=== PATIENT | female | born 1950 | race Caucasian/White ===

== ENCOUNTER 2017-03-30 21:19 | Emergency (ER) | payer MEDICARE, OTHER ==
[~2017-03-30] VITALS: Ht 165.1 cm; Wt 124.0 kg
[~2017-03-30 21:19] MED LIST: AMLO10 PO; COZA100T PO; GABA300C3 PO; LORTA5; PREM0.45 PO; TAB-TAB PO; TIZA4 PO; TRAM50TA PO
[2017-03-30 21:20] VITALS: BP 169/102; PULSE 83; RESP 16; TEMP 98.3; O2SAT 98
--- NOTE | 2017-03-30 23:13 | PD ---
HPI Chief Complaint: Fall Time Seen by Provider: 23:10 Travel History International Travel<30 days: No Contact w/Intl Traveler<30days: No Traveled to known affect area: No History of Present Illness HPI WHILE AT HOME, HER SEAT WAS ON COASTERS AND WHEN SHE ATTEMPTED TO GET UP IT SLID FROM UNDER HER AND SHE LANDED MOST OF HER WEIGHT ON RIGHT HIP, NOW PAINFUL 8/10, UNABLE TO SIT ON RIGHT BUTTCHEEK....VERY HARD TIME AMBULATING PFSH Past Medical History Arthritis: Yes Blood Disorders: No Cancer: No Cardiovascular Problems: Yes Diabetes: No Endocrine: No Glaucoma: No Genitourinary: No Hepatitis: No Hiatal Hernia: No Hypertension: Yes Immune Disorder: No Musculoskeletal: Yes Neurologic: Yes Psychiatric: No Reproductive: No Respiratory: No Thyroid Disease: No Past Surgical History Body Medical Devices: 2 EYE LENS Eye Surgery: Yes (ANN CATARACT SX) Gynecologic Surgery: Yes (TUBAL LIG., ANN. OOPHORECTOMIES) Joint Replacement: Yes (ANN TOTAL KNEE) Pacemaker: No Social History Alcohol Use: No Tobacco Use: No Substance Use: No Allergies-Medications (Allergen,Severity, Reaction): Coded Allergies: Lortab (Unverified Allergy, Severe, RASH, 03/30/17) Reported Meds & Prescriptions Reported Meds & Active Scripts Active Flexeril (Cyclobenzaprine HCl) 10 Mg Tab 10 Mg PO TID Codeine-Acetaminophen 30-300 mg Tab 1 Tab PO Q4H PRN Reported Gabapentin 300 Mg Cap 300 Mg PO QID Doxycycline Hyclate 100 Mg Cap 100 Mg PO BID K-Tab (Potassium Chloride) 10 Meq Tab 10 Meq PO BID Metoprolol Tartrate 25 Mg Tab 25 Mg PO BID Hydrocodone-Acetaminophen 5-300 Mg Tab 1 Tab PO Q8HR PRN Furosemide 20 Mg Tab 20 Mg PO BID Clonidine (Clonidine HCl) 0.1 Mg Tab 0.1 Mg PO BID Amlodipine (Amlodipine Besylate) 5 Mg Tab 5 Mg PO DAILY Review of Systems Except as stated in HPI: all other systems reviewed are Neg Musculoskeletal: Positive: Limited ROM, Pain (RLE/RT HIP AREA) Physical Exam Narrative GENERAL: SKIN: Warm and dry. HEAD: Atraumatic. Normocephalic. EYES: Pupils equal and round. No scleral icterus. No injection or drainage. ENT: No nasal bleeding or discharge. Mucous membranes pink and moist. NECK: Trachea midline. No JVD. CARDIOVASCULAR: Regular rate and rhythm. RESPIRATORY: No accessory muscle use. Clear to auscultation. Breath sounds equal bilaterally. GASTROINTESTINAL: Abdomen soft, non-tender, nondistended. Hepatic and splenic margins not palpable. MUSCULOSKELETAL: Extremities without clubbing, cyanosis, or edema. No obvious deformities. BUT SEVERELY LIMITED ROM AT RIGHT HIP/PELVIS/FEMUR AREAS WITHOUT GROSS DEFORMITIES NEUROLOGICAL: Awake and alert. No obvious cranial nerve deficits. Motor grossly within normal limits. Five out of 5 muscle strength in the arms and legs. Normal speech. PSYCHIATRIC: Appropriate mood and affect; insight and judgment normal. Data Data Last Documented VS Vital Signs Date Time Temp Pulse Resp B/P Pulse Ox O2 Delivery O2 Flow Rate FiO2 03/31/17 01:25 94 20 128/78 98 03/30/17 23:25 Room Air 03/30/17 21:20 98.3 Orders Femur (Ap & Lat/2vws) (03/30/17 23:10) Hip, Uni(Ap&Lat) W Ap Pelvis (03/30/17 23:10) Iv Access Insert/Monitor (03/30/17 23:10) Lorazepam Inj (Ativan Inj) (03/30/17 23:15) Ketorolac Inj (Toradol Inj) (03/30/17 23:15) MDM Medical Decision Making Medical Screen Exam Complete: Yes Emergency Medical Condition: Yes Medical Record Reviewed: Yes Differential Diagnosis PELVIS VS HIP VS FEMUR FX/DISLOCATION Narrative Course PT EVALUATED AND NOT FOUND TO HAVE HAD ANY FX OR DISLOCATION, PT HAD GREAT RELIEF OF PAIN AND WAS ABLE TO AMBULATE ON HER OWN Diagnosis Primary Impression: HIP CONTUSION Scripts Cyclobenzaprine (Flexeril)10 Mg Tab10 Mg PO TID #21 TAB Prov:Filipe Charles MD 03/31/17 Codeine-Acetaminophen 30-300 mg Tab1 Tab PO Q4H PRN (PAIN) #20 TAB Prov:Filipe Charles MD 03/31/17 Disposition: 01 DISCHARGE HOME Condition: Stable Filipe Charles MD Mar 30, 2017 23:13
[2017-03-30] MEDS ORDERED: KETOROLAC TROMETHAMINE 30 MG/ML (IVP) VIAL IV PUSH ONE (23:15)
[2017-03-30] MEDS ORDERED: LORazepam 2 MG/ML VIAL IVP ONE (23:15)
[2017-03-30] MEDS ORDERED: K-TA10TA PO (23:24)
[2017-03-30] MEDS ORDERED: FURO20TA PO (23:24)
[2017-03-30] MEDS ORDERED: CLON0.1T PO (23:24)
[2017-03-30] MEDS ORDERED: AMLO5TAB2 PO (23:24)
[2017-03-30] MEDS ORDERED: DOXY100C PO (23:24)
[2017-03-30] MEDS ORDERED: GABA300C5 PO (23:24)
[2017-03-30] MEDS ORDERED: METO25TA3 PO (23:24)
[2017-03-30] MEDS ORDERED: HYDR-4107 PO (23:24)
[2017-03-30 23:25] VITALS: BP 148/90; PULSE 69; RESP 18; O2SAT 96
--- NOTE | 2017-03-31 00:06 | RADRPT ---
EXAM DATE/TIME: 03/30/2017 23:49 [facility] COMPARISON: No previous studies available for comparison. INDICATIONS : Right hip pain from a fall two weeks ago. MEDICAL HISTORY : Arthritis. Hypertension SURGICAL HISTORY : Total knee replacement, left. Total knee replacement, right. ENCOUNTER: Initial ACUITY: 2 weeks PAIN SCORE: 6/10 LOCATION: Right hip FINDINGS: Examination of the right hip was performed with AP Pelvis. The primary and secondary trabecular noemí carter of the femoral neck is intact. Mild osteoarthritic of each hip. Sclerosis of both SI joints. CONCLUSION: 1. Mild osteoarthritis of the right hip without fracture. 2. Bilateral sacroiliitis. Lucius Lane MD on March 31, 2017 at 0:04 Board Certified Radiologist. This report was verified electronically.
--- NOTE | 2017-03-31 00:08 | RADRPT ---
EXAM DATE/TIME: 03/30/2017 23:53 [facility] COMPARISON: No previous studies available for comparison. INDICATIONS : Right hip pain from a fall two weeks ago. MEDICAL HISTORY : Arthritis. Hypertension SURGICAL HISTORY : Total knee replacement, left. Total knee replacement, right. ENCOUNTER: Initial ACUITY: 2 weeks PAIN SCORE: 6/10 LOCATION: Right hip FINDINGS: Two view examination of the right femur demonstrates no evidence of fracture or dislocation. Bony mi neralization is normal. The soft tissue structures are intact. Right knee arthroplasty. CONCLUSION: No acute fracture right femur. Lucius Lane MD on March 31, 2017 at 0:06 Board Certified Radiologist. This report was verified electronically.
[2017-03-31] MEDS ORDERED: CYCL1TAB29 PO (00:46)
[2017-03-31] MEDS ORDERED: CODE30TA2 PO (00:46)
[2017-03-31 01:25] VITALS: BP 128/78
== END 2017-03-31 01:30 | disposition home or self-care (01) ==
LOC: NEPC 21:19
DX: S70.01XA Contusion of right hip, initial encounter (principal); W19.XXXA Unspecified fall, initial encounter; I10 Essential (primary) hypertension
CPT/HCPCS: 73502; 73552; 96374; 96375; 99284; J1885; J2060

== ENCOUNTER → 2017-05-28 | Day surgery (SDC) | payer MEDICARE ==
[~2017-05-28] MED LIST changes: -AMLO10 PO; +AMLO5TAB2 PO; +CLINDAMYCIN PHOS 900 MG/6 ML VIAL ONE; +CLON0.1T PO; +CODE30TA2 PO; -COZA100T PO; +CYCL1TAB29 PO; +DOXY100C PO; +EPINEPHrine HCL (1:1000) 1 MG/ML VIAL ONE; +FURO20TA PO; -GABA300C3 PO; +GABA300C5 PO; +HYDR-4107 PO; +K-TA10TA PO; +LACTATED RINGER'S 1000 ML INJ 1,000 ML ONE; +LIDOCAINE 1%/EPINEPHrine 1:200,000 PF SOLN 30 ML VIAL ONE; -LORTA5; +METO25TA3 PO; +MIDAZOLAM HCL 2 MG/2 ML VIAL ONE; +ONDANSETRON HCL 4 MG/2 ML VIAL IV PUSH ONE; -PREM0.45 PO; +PROPOFOL 200 MG/20 ML AMP IV ONE; +SODIUM CHLORIDE 0.9% INJ 100 ML IV ONE; -TAB-TAB PO; -TIZA4 PO; -TRAM50TA PO
--- NOTE | 2017-05-28 10:57 | MP ---
cc: ELSI WYATT M.D. DATE OF SURGERY 05/28/2017 PREOPERATIVE DIAGNOSES Bilateral axillary hidradenitis POSTOPERATIVE DIAGNOSIS Bilateral axillary hidradenitis OPERATION Bilateral axillary hidradenitis excision multiple areas SURGEON Elsi Wyatt MD ANESTHESIA General INDICATIONS This is a 67-year-old female with chronic hidradenitis both sides, left side more than the right. The left side is more active and open. The patient underwent an explanation of the complete excision of the area and direct closure, possibly leaving the wound open if it is too tight. The patient agrees to the surgery. She understands the possibility of bleeding, infection, keloids and chronic pain, etc. PROCEDURE The patient was brought to the operating room, was given supine position. Anesthesia was started. IV antibiotics had been given. Time-out was called and completed. Prep and drape had been done. The areas on both sides were identified, four areas on the right and approximately four large confluent areas on the left. Lidocaine 1% with epi and additional epinephrine and saline was injected for tumescence. The areas were excised directly including skin fat and underlying tissue without opening the glands themselves. All the areas were cauterized for hemostasis and most of them were able to be closed with deep 2-0 Vicryl sutures to close the cavity and 3-0 Monocryl to close the skin. The one on the left side needed adjustment of the local tissue between the two large areas in the center of the axilla to provide better ability to open the axilla. All the areas were cleaned, dried and sterile dressing was applied. The patient remained stable. Intraoperative blood loss minimal, less than 5 mL. No complications. signed, not fully reviewed MD MANDY Bell/VARINDER /9:13 AM /10:49 AM [facility]
== END | disposition home or self-care (01) ==
LOC: ESDC 06:45
PROVIDERS: ATTEND Plastic Surgery
DX: L73.2 Hidradenitis suppurativa (principal)
CPT/HCPCS: 00400; 11450; 88305; J0171; J2250; J2405; J3010; J7120